=== PATIENT | male | born 1945 ===

== ENCOUNTER → 2025-02-24 08:21 | Outpatient (BNVA) | payer MEDICARE, SELFPAY | PROVIDERS: PCP Nurse Practitioner; Visit Provider Nurse Practitioner | DX: N18.4 Chronic kidney disease, stage 4 (severe) (principal); E11.65 Type 2 diabetes mellitus with hyperglycemia; E55.9 Vitamin D deficiency, unspecified | CPT/HCPCS: 80069; 81003; 82306; 82310; 82570; 83970; 84156; 85025 ==